=== PATIENT | female | born 1990 | race Caucasian/White ===

== ENCOUNTER 2019-09-13 14:44 | Observation (INO) ==
[2019-09-13] MEDS ORDERED: SODIUM CHLORIDE 0.9% 1000ML 2,000 ML IV ONE (14:57)
[2019-09-13] MEDS ORDERED: ONDANSETRON INJ 2 MG/ML 2 ML VIAL IV STA (14:57)
[2019-09-13 15:20] LABS: Basophils # (auto) 0.01 K/uL (0-0.2); Basophils % (auto) 0.1 %; Hematocrit (blood only) 38.8 % (37-47); Hemoglobin 13.4 g/dL (12.0-16.0); Immature Granulocytes # (auto) 0.04 K/uL (0.00-0.02); Immature Granulocytes % (auto) 0.2 %; Lymphocytes # (auto) 1.22 K/uL (1.2-3.4); Lymphocytes % (auto) 7.2 %; Mean Corpuscular Hemoglobin 30.9 pg (25-34); Mean Corpuscular Hgb Conc 34.5 g/dL (32-36); Mean Corpuscular Volume 89.6 fL (80-100); Mean Platelet Volume 10.4 fL (7.4-10.4); Monocytes # (auto) 1.26 K/uL (0.11-0.59); Monocytes % (auto) 7.4 %; Neutrophils # (auto) 14.42 K/uL (1.4-6.5); Neutrophils % (auto) 85.1 %; Platelet Count 246 K/uL (130-400); RDW Coefficient of Variation 13.1 % (11.5-14.5); RDW Standard Deviation 42.9 fL (36.4-46.3); Red Blood Count 4.33 M/uL (4.2-5.4); White Blood Count 16.95 K/uL (4.8-10.8)
[2019-09-13 15:47] LABS: Albumin Level 4.1 gm/dl (3.4-5.0); BUN Creatinine Ratio 10.9 (10-20); Calcium 9.2 mg/dl (8.5-10.1); Creatinine Clr Calc Pharmacy 90.3 ml/min; Est GFR (African American) 111.3; Potassium 3.4 mmol/L (3.5-5.1)
[2019-09-13 15:50] LABS: Globulin 4.3 gm/dl (2.5-4.0); Total Protein 8.4 gm/dl (6.4-8.2)
[2019-09-13 16:20] LABS: Appearance Urine Clear (Clear); Bilirubin Urine Negative (Negative); Blood Urine Negative (Negative); Color Urine Yellow; Glucose Urine UA Negative (Negative); Ketones Urine Negative (Negative); Leukocyte Esterase Urine Negative (Negative); Nitrite Urine Negative (Negative); Protein Urine Negative (Negative); Specific Gravity Urine 1.007 (1.000-1.030); Urobilinogen Urine Negative (Negative)
[2019-09-13] MEDS ORDERED: IOVERSOL 100ml IV PRN (17:20)
--- NOTE | 2019-09-13 17:31 | CT Scan Report ---
CT abd pelvis oral and IV con CT DOSE: 281.41 mGy.cm HISTORY: Flank pain abd rlq TECHNIQUE: Multiaxial CT images of the abdomen and pelvis were performed following the use of intrave nous and oral contrast. A dose lowering technique was utilized adhering to the principles of ALARA. COMPARISON STUDY: None. FINDINGS: Lung bases are clear. Liver spleen and pancreas are unremarkable. Kidneys enhance uniformly. No evidence for hydronephrosis. Considerable infiltrative change surrounding the cecum and appendix. The appendix is distended to 1.2 cm. No evidence for drainable abscess or collection. The appearance however is consistent with that of acute appendicitis. Bowel pattern again is nonobstructive. There are small ovarian follicular cysts bilaterally. There is trace free fluid within the pelvic cul-de-sac. IMPRESSION: 1. Acute appendicitis. 2. The appendix is dilated to 1.2 cm, and demonstrates considerable periappendiceal infiltrative rivera ge. 3. No evidence for abscess collection or obstruction. The above report was generated using voice recognition software. It may contain grammatical, syntax or spelling errors. Electronically signed by: Maximus Bueno M.D. 09/13/2019 5:30 PM
[2019-09-13] MEDS ORDERED: cefOXitin 2,000 MG/60 ML BAG IV STA (17:39)
[2019-09-13] MEDS ORDERED: WATER, STERILE FOR INJ 20 ML VIAL ONE (17:44)
--- NOTE | 2019-09-13 18:17 | Emergency Department Note ---
Entered by Bryanna Garcia acting as a scribe for Clyde Benjamin DO History of Present Illness General Chief complaint: Abdominal Pain Stated complaint: SEVERE ABDOMINAL PAIN Source: patient History of Present Illness Provider complaint: Abdominal Pain Onset (ago): day(s) 1 Location: abdomen (Lower) and right Maximum Pain Intensity: 5 Relieved By: + none Exacerbated By: + none Associated symptoms: + denies other symptoms (Abnormal vaginal bleeding or discharge, urinary symptoms), + nausea/vomiting (Positive nausea. Negative vomiting.) and + other (Diarrhea) The patient is a 29 year old female who presents to the Emergency Room with complaints of lower right sided abdominal pain that began yesterday. The patient states the pain is not relieved nor exacerbated by anything specific. The patient reports experiencing nausea and diarrhea but denies any vomiting. The patient denies any abnormal vaginal bleeding or discharge and does not report any urinary symptoms. 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 The patient also denies any previous abdominal surgeries. Home Medications Home Medications Medication Instructions Recorded Confirmed Type quetiapine [Seroquel XR] 400 mg PO PM 09/13/19 09/13/19 History Allergies Allergy/AdvReac Type Severity Reaction Status Date / Time No Known Allergies Allergy Unverified 09/13/19 16:11 Past Med/Surg History Medical History No pertinent past medical history Family History Other No pertinent family history in first degree relatives Social History Preferred Language: Citizen Of [place] Communication Ability: Effective Beliefs That Will Affect Care: None Current Living Situation: Spouse Other Information That Helps Us Care for You: No Feels Safe at Home: Yes Safety Concerns: Feels Safe At This Time Smoking Status: Never smoker Hx Alcohol Use: Yes Alcohol type: wine Hx Substance Use: No Review of Systems See HPI for pertinent positives & negatives. and A total of 10 systems reviewed and were otherwise negative Physical Exam Vital Signs Vital Signs - 24 hr 09/13/19 14:45 09/13/19 15:28 09/13/19 15:31 Temperature 36.9 C Temperature Source Oral Pulse Rate 116 H 96 H Pulse Rate from SpO2 Sensor 102 H Respiratory Rate 20 22 Respiratory Depth Normal Blood Pressure 121/83 116/88 Blood Pressure Mean 95 94 Pulse Oximetry 99 98 98 Oxygen Delivery Method Room Air Room Air Sepsis Recent Fever Within 48 Hours No Sepsis New/Unexplained Change in Mental Status No Sepsis Action Taken by Nursing No Action Required 09/13/19 16:00 09/13/19 16:30 09/13/19 17:00 Temperature Temperature Source Pulse Rate 98 H 103 H 111 H Pulse Rate from SpO2 Sensor 108 H 109 H Respiratory Rate 15 15 14 Respiratory Depth Blood Pressure 137/82 128/86 122/76 Blood Pressure Mean 88 97 82 Pulse Oximetry 100 100 97 Oxygen Delivery Method Sepsis Recent Fever Within 48 Hours Sepsis New/Unexplained Change in Mental Status Sepsis Action Taken by Nursing 09/13/19 17:29 09/13/19 17:30 09/13/19 17:31 Temperature Temperature Source Pulse Rate 119 H 114 H 106 H Pulse Rate from SpO2 Sensor 108 H Respiratory Rate 18 21 22 Respiratory Depth Blood Pressure 103/87 Blood Pressure Mean 92 Pulse Oximetry 96 Oxygen Delivery Method Sepsis Recent Fever Within 48 Hours Sepsis New/Unexplained Change in Mental Status Sepsis Action Taken by Nursing 09/13/19 17:40 09/13/19 17:50 Temperature Temperature Source Pulse Rate 103 H 109 H Pulse Rate from SpO2 Sensor 104 H Respiratory Rate 18 20 Respiratory Depth Blood Pressure Blood Pressure Mean Pulse Oximetry 100 Oxygen Delivery Method Sepsis Recent Fever Within 48 Hours Sepsis New/Unexplained Change in Mental Status Sepsis Action Taken by Nursing GENERAL: alert, well nourished, mild distress, non-toxic, sitting up in bed holding RLQ EYE EXAM: normal conjunctiva LUNGS: Clear to auscultation. Normal chest wall mechanics HEART: no murmurs, S1 normal and S2 normal ABDOMEN: abdomen soft, tender to palpation of RLQ, normo-active bowel sounds, no masses, no rebound or guarding. BACK: Back is symmetrical on inspection and there is no deformity, no midline tenderness, no CVA tenderness. SKIN: no rashes and no bruising UPPER EXTREMITIES: upper extremities are grossly normal. LOWER EXTREMITIES: No pitting edema. NEURO EXAM: Normal sensorium, cranial nerves II-XII grossly intact, normal speech, no gross weakness of arms, no gross weakness of legs. Course Course ED COURSE: Vital signs were reviewed and showed the patient is situationally hypertensive and tachycardic. The patients medical record was reviewed The above diagnostic studies were performed and reviewed. ED treatments and interventions as stated above. 1453: The patient was evaluated in room B06. A complete history and physical examination was performed. 1742: Upon reevaluation, the patient is resting comfortably. I discussed my findings with the patient and the patient understands and agrees with the treatment plan. Based on the patients age, coexisting illnesses, exam and lab findings the decision to treat as an inpatient was made. The patient remained stable while under my care. 1748: I spoke with Dr. Gu- General Surgery about the patient's case and he will accept the patient to be evaluated for further management. Administered Medications Ioversol (Optiray 320 100ml) 94 ml IV ONCE PRN PRN Reason: Interaction Checking Stop: 09/17/19 17:19 Last Admin: 09/13/19 17:20 Dose: 94 ml Documented by: [id number] Discontinued Medications Sodium Chloride (Nss 1000ml) 2,000 mls @ 999 mls/hr IV .Q2H1M ONE Stop: 09/13/19 16:57 Last Infusion: 09/13/19 17:19 Dose: 0 mls/hr Documented by: [id number] Admin: 09/13/19 15:18 Dose: 999 mls/hr Documented by: [id number] Cefoxitin Sodium (Mefoxin) 2,000 mg in 60 mls @ 100 mls/hr IV NOW STA Stop: 09/13/19 18:14 Last Admin: 09/13/19 17:51 Dose: 100 mls/hr Documented by: [id number] Ondansetron HCl (Zofran) 4 mg IV NOW STA Stop: 09/13/19 14:58 Last Admin: 09/13/19 15:18 Dose: 4 mg Documented by: [id number] Sterile Water (Sterile Water) Confirm Administered Dose 20 ml .ROUTE .STK-MED ONE Stop: 09/13/19 17:45 Last Admin: 09/13/19 17:47 Dose: 20 ml Documented by: [id number] Medical Decision Making Differential Diagnosis Differential diagnoses includes but is not limited to gastritis, peptic ulcer disease, GERD, gallbladder disease, pancreatitis, small bowel obstruction, acute coronary syndrome, pericarditis, ischemic bowel, irritable bowel disease, irritable bowel syndrome, appendicitis, diverticulitis, malignancy, hernia, urinary tract infection, torsion, /ectopic , perforation, trauma, infectious. Medical Records Attestation: I reviewed the patient's medical records. Home Medications Current Medication List: was personally reviewed by me Laboratory Data Attestation: I reviewed the patient's lab results. Result diagrams: 09/13/19 15:07 09/13/19 15:07 Lab Results 09/13/19 09/13/19 09/13/19 Range/Units 15:07 15:07 15:56 WBC 16.95 H (4.8-10.8) K/uL RBC 4.33 (4.2-5.4) M/uL Hgb 13.4 (12.0-16.0) g/dL Hct 38.8 (37-47) % MCV 89.6 (80-100) fL MCH 30.9 (25-34) pg MCHC 34.5 (32-36) g/dL RDW Std Deviation 42.9 (36.4-46.3) fL RDW Coeff of Reggie 13.1 (11.5-14.5) % Plt Count 246 (130-400) K/uL MPV 10.4 (7.4-10.4) fL Immature Gran % (Auto) 0.2 % Neut % (Auto) 85.1 % Lymph % (Auto) 7.2 % [place] % (Auto) 7.4 % Eos % (Auto) 0.0 % Baso % (Auto) 0.1 % Immature Gran # (Auto) 0.04 H (0.00-0.02) K/uL Neut # (Auto) 14.42 H (1.4-6.5) K/uL Lymph # (Auto) 1.22 (1.2-3.4) K/uL [place] # (Auto) 1.26 H (0.11-0.59) K/uL Eos # (Auto) 0.00 (0-0.5) K/uL Baso # (Auto) 0.01 (0-0.2) K/uL Sodium 136 (136-145) mmol/L Potassium 3.4 L (3.5-5.1) mmol/L Chloride 104 (98-107) mmol/L Carbon Dioxide 23 (21-32) mmol/L Anion Gap 9.0 (3-11) BUN 9 (7-18) mg/dl Creatinine 0.82 (0.6-1.2) mg/dl Est Cr Clr Drug Dosing 90.3 ml/min Est GFR ( Amer) 111.3 Est GFR (Non-Af Amer) 96.0 BUN/Creatinine Ratio 10.9 (10-20) Glucose 115 H (70-99) mg/dl Calcium 9.2 (8.5-10.1) mg/dl Total Bilirubin 1.0 (0.2-1) mg/dl AST 14 L (15-37) U/L ALT 14 (12-78) U/L Alkaline Phosphatase 79 (45-117) U/L Total Protein 8.4 H (6.4-8.2) gm/dl Albumin 4.1 (3.4-5.0) gm/dl Globulin 4.3 H (2.5-4.0) gm/dl Albumin/Globulin Ratio 1.0 (0.9-2) Lipase 101 (73-393) U/L Urine Color Urine Appearance (Clear) Urine pH (4.5-7.5) Ur Specific [place] (1.000-1.030) Urine Protein (Negative) Urine Glucose (UA) (Negative) Urine Ketones (Negative) Urine Blood (Negative) Urine Nitrite (Negative) Urine Bilirubin (Negative) Urine Urobilinogen (Negative) Ur Leukocyte Esterase (Negative) POC Ur Test NEG (NEG) 09/13/19 Range/Units 15:56 WBC (4.8-10.8) K/uL RBC (4.2-5.4) M/uL Hgb (12.0-16.0) g/dL Hct (37-47) % MCV (80-100) fL MCH (25-34) pg MCHC (32-36) g/dL RDW Std Deviation (36.4-46.3) fL RDW Coeff of Reggie (11.5-14.5) % Plt Count (130-400) K/uL MPV (7.4-10.4) fL Immature Gran % (Auto) % Neut % (Auto) % Lymph % (Auto) % [place] % (Auto) % Eos % (Auto) % Baso % (Auto) % Immature Gran # (Auto) (0.00-0.02) K/uL Neut # (Auto) (1.4-6.5) K/uL Lymph # (Auto) (1.2-3.4) K/uL [place] # (Auto) (0.11-0.59) K/uL Eos # (Auto) (0-0.5) K/uL Baso # (Auto) (0-0.2) K/uL Sodium (136-145) mmol/L Potassium (3.5-5.1) mmol/L Chloride (98-107) mmol/L Carbon Dioxide (21-32) mmol/L Anion Gap (3-11) BUN (7-18) mg/dl Creatinine (0.6-1.2) mg/dl Est Cr Clr Drug Dosing ml/min Est GFR ( Amer) Est GFR (Non-Af Amer) BUN/Creatinine Ratio (10-20) Glucose (70-99) mg/dl Calcium (8.5-10.1) mg/dl Total Bilirubin (0.2-1) mg/dl AST (15-37) U/L ALT (12-78) U/L Alkaline Phosphatase (45-117) U/L Total Protein (6.4-8.2) gm/dl Albumin (3.4-5.0) gm/dl Globulin (2.5-4.0) gm/dl Albumin/Globulin Ratio (0.9-2) Lipase (73-393) U/L Urine Color Yellow Urine Appearance Clear (Clear) Urine pH 6.0 (4.5-7.5) Ur Specific [place] 1.007 (1.000-1.030) Urine Protein Negative (Negative) Urine Glucose (UA) Negative (Negative) Urine Ketones Negative (Negative) Urine Blood Negative (Negative) Urine Nitrite Negative (Negative) Urine Bilirubin Negative (Negative) Urine Urobilinogen Negative (Negative) Ur Leukocyte Esterase Negative (Negative) POC Ur Test (NEG) Imaging Data Radiologist's Impression: Radiology results as stated below per my review and the radiologist's interpretation: CT abd pelvis oral and IV con CT DOSE: 281.41 mGy.cm HISTORY: Flank pain abd rlq TECHNIQUE: Multiaxial CT images of the abdomen and pelvis were performed following the use of intravenous and oral contrast. A dose lowering technique was utilized adhering to the principles of ALARA. COMPARISON STUDY: None. FINDINGS: Lung bases are clear. Liver spleen and pancreas are unremarkable. Kidneys enhance uniformly. No evidence for hydronephrosis. Considerable infiltrative change surrounding the cecum and appendix. The appendix is distended to 1.2 cm. No evidence for drainable abscess or collection. The appearance however is consistent with that of acute appendicitis. Bowel pattern again is nonobstructive. There are small ovarian follicular cysts bilaterally. There is trace free fluid within the pelvic cul-de-sac. IMPRESSION: 1. Acute appendicitis. 2. The appendix is dilated to 1.2 cm, and demonstrates considerable periappendiceal infiltrative change. 3. No evidence for abscess collection or obstruction. The above report was generated using voice recognition software. It may contain grammatical, syntax or spelling errors. Electronically signed by: Maximus Bueno M.D. 09/13/2019 5:30 PM Blood Pressure Blood Pressure Findings: Elevated blood pressure Blood Pressure Disposition: further management by hospitalist KATHERYN Sanchez Patient is a 29-year-old female that presents the ER for right lower quadrant abdominal pain which started earlier today. She is a nurse at [employer]. IV was established blood work was obtained and showed a leukocytosis of 17,000. No significant anemia. BMP with mild hypokalemia at 3.4. LFTs bilirubin and lipase was unremarkable. UA was negative. was neg ative. CT abdomen pelvis shows acute appendicitis with a 1.2 cm appendix. Patient was given IV fluids IV Zofran and IV cefoxitin. Patient was updated at bedside. Discussed with general surgery and patient will be taken to the OR for acute appendicitis with a leukocytosis of 16,000 receiving IV cefoxitin. She has had nothing to eat or drink since last night per her report with exception of the oral contrast. Impression & Plan Acute appendicitis, Leukocytosis, Abdominal pain Discharge Plan Visit Data Chief Complaint: Abdominal Pain Stated Complaint: SEVERE ABDOMINAL PAIN ED Provider: Clyde Benjamin Discharge Problem: Acute appendicitis, Leukocytosis, Abdominal pain Forms Stand Alone Forms: Call Back Authorization, [employer] Prescriptions Prescriptions: No Action quetiapine [Seroquel XR] 400 mg Tablet Extended Release 24 Hr 400 mg PO PM RF: 0 Discharge Problem: Acute appendicitis Qualifiers: Acute appendicitis type: unspecified acute appendicitis type Qualified Code(s): K35.80 - Unspecified acute appendicitis Leukocytosis Qualifiers: Leukocytosis type: unspecified Qualified Code(s): D72.829 - Elevated white blood cell count, unspecified Abdominal pain Qualifiers: Abdominal location: right lower quadrant Qualified Code(s): R10.31 - Right lower quadrant pain The scribe's documentation has been prepared under my direction and personally reviewed by me in its entirety. I confirm that the note above accurately reflects all work, treatment, procedures, and medical decision making performed by me.
--- NOTE | 2019-09-13 18:39 | History & Physical Report ---
Date of Service September 13, 2019 Assessment & Plan (1) Acute appendicitis with localized peritonitis: 29-year-old female with acute, uncomplicated appendicitis Plan for laparoscopic appendectomy The risks of the procedure were discussed to include but not limited to bleeding, infection, normal appendix, open surgery, damage to surrounding structures, need for future or more extensive surgery, abscess, and the risk of anesthesia Antibiotics given preoperatively Admit for observation postoperatively, likely discharge in the morning The diagnosis, treatment options, details of the surgery and recovery, and plan of care were discussed with the patient, all questions were answered, the patient expressed understanding and agrees the plan of care as stated Present on Admission?: Yes History of Present Illness Primary Care Provider: Dixie Mtoa DO 29-year-old female presented to the emergency department with right lower quadrant pain. Pain began last night at around 10:00. It continued to get worse. She came into the emergency department today after having nausea and loose stools throughout the day. She also noticed that it hurt to bend over or when riding in the car. No similar episodes in the past. No personal or family history of UC or Crohn's disease. Otherwise healthy, denies prior surgery. A llergies Allergy/AdvReac Type Severity Reaction Status Date / Time No Known Allergies Allergy Unverified 09/13/19 16:11 Home Medications Home Medications Medication Instructions Recorded Confirmed Type quetiapine [Seroquel XR] 400 mg PO PM 09/13/19 09/13/19 History Past Med/Surg History Medical History No pertinent past medical history Family History Other No pertinent family history in first degree relatives Social History Preferred Language: [place] Communication Ability: Effective Beliefs That Will Affect Care: None Current Living Situation: Spouse Other Information That Helps Us Care for You: No Feels Safe at Home: Yes Safety Concerns: Feels Safe At This Time Smoking Status: Never smoker Hx Alcohol Use: Yes Alcohol type: wine Hx Substance Use: No Review of Systems Review of Systems: All systems reviewed & are unremarkable except as noted in HPI & below Physical Exam Constitutional: WD/WN, vitals as above Eyes: PERRL, conjunctivae normal, anicteric sclerae ENMT: external ear and nose normal, oropharynx normal Neck: trachea midline, no thyromegaly Respiratory: normal respiratory effort, lungs clear to auscultation Cardiovascular: RRR, no murmur, no edema Gastrointestinal (Abdomen): Percussion/Palpation: + abdomen tender (Tenderness to palpation in the right lower quadrant with localized guarding) and abdomen soft; no guarding, abdomen not rigid and no hepatosplenomegaly Musculoskeletal: no cyanosis or clubbing, extremities motor strength 5/5 Skin: no rashes, warm and dry Neurologic: PERRL, EOMI, accommodation nl, no face palsy, no dysarthria Psychiatric: A+Ox3, euthymic affect Lymphatic: no cervical or axillary lymphadenopathy Results & Data Vital Signs (Past 12 Hours) Vital Signs Temp Pulse Resp BP Pulse Ox 09/13/19 17:50 109 H 20 09/13/19 17:40 103 H 18 100 09/13/19 17:31 106 H 22 96 09/13/19 17:30 114 H 21 103/87 09/13/19 17:29 119 H 18 09/13/19 17:00 111 H 14 122/76 97 09/13/19 16:30 103 H 15 128/86 100 09/13/19 16:00 98 H 15 137/82 100 09/13/19 15:31 96 H 22 116/88 98 09/13/19 15:28 98 09/13/19 14:45 36.9 C 116 H 20 121/83 99 Laboratory Results Laboratory Results - last 24 hr 09/13/19 09/13/19 09/13/19 15:07 15:07 15:56 WBC 16.95 H RBC 4.33 Hgb 13.4 Hct 38.8 MCV 89.6 MCH 30.9 MCHC 34.5 RDW Std Deviation 42.9 RDW Coeff of Reggie 13.1 Plt Count 246 MPV 10.4 Immature Gran % (Auto) 0.2 Neut % (Auto) 85.1 Lymph % (Auto) 7.2 [place] % (Auto) 7.4 Eos % (Auto) 0.0 Baso % (Auto) 0.1 Immature Gran # (Auto) 0.04 H Neut # (Auto) 14.42 H Lymph # (Auto) 1.22 [place] # (Auto) 1.26 H Eos # (Auto) 0.00 Baso # (Auto) 0.01 Sodium 136 Potassium 3.4 L Chloride 104 Carbon Dioxide 23 Anion Gap 9.0 BUN 9 Creatinine 0.82 Est Cr Clr Drug Dosing 90.3 Est GFR ( Amer) 111.3 Est GFR (Non-Af Amer) 96.0 BUN/Creatinine Ratio 10.9 Glucose 115 H Calcium 9.2 Total Bilirubin 1.0 AST 14 L ALT 14 Alkaline Phosphatase 79 Total Protein 8.4 H Albumin 4.1 Globulin 4.3 H Albumin/Globulin Ratio 1.0 Lipase 101 Urine Color Urine Appearance Urine pH Ur Specific [place] Urine Protein Urine Glucose (UA) Urine Ketones Urine Blood Urine Nitrite Urine Bilirubin Urine Urobilinogen Ur Leukocyte Esterase POC Ur Test NEG 09/13/19 15:56 WBC RBC Hgb Hct MCV MCH MCHC RDW Std Deviation RDW Coeff of Reggie Plt Count MPV Immature Gran % (Auto) Neut % (Auto) Lymph % (Auto) [place] % (Auto) Eos % (Auto) Baso % (Auto) Immature Gran # (Auto) Neut # (Auto) Lymph # (Auto) [place] # (Auto) Eos # (Auto) Baso # (Auto) Sodium Potassium Chloride Carbon Dioxide Anion Gap BUN Creatinine Est Cr Clr Drug Dosing Est GFR ( Amer) Est GFR (Non-Af Amer) BUN/Creatinine Ratio Glucose Calcium Total Bilirubin AST ALT Alkaline Phosphatase Total Protein Albumin Globulin Albumin/Globulin Ratio Lipase Urine Color Yellow Urine Appearance Clear Urine pH 6.0 Ur Specific [place] 1.007 Urine Protein Negative Urine Glucose (UA) Negative Urine Ketones Negative Urine Blood Negative Urine Nitrite Negative Urine Bilirubin Negative Urine Urobilinogen Negative Ur Leukocyte Esterase Negative POC Ur Test Diagnostic Findings CT abd pelvis oral and IV con CT DOSE: 281.41 mGy.cm HISTORY: Flank pain abd rlq TECHNIQUE: Multiaxial CT images of the abdomen and pelvis were performed following the use of intravenous and oral contrast. A dose lowering technique was utilized adhering to the principles of ALARA. COMPARISON STUDY: None. FINDINGS: Lung bases are clear. Liver spleen and pancreas are unremarkable. Kidneys enhance uniformly. No evidence for hydronephrosis. Considerable infiltrative change surrounding the cecum and appendix. The appendix is distended to 1.2 cm. No evidence for drainable abscess or collection. The appearance however is consistent with that of acute appendicitis. Bowel pattern again is nonobstructive. There are small ovarian follicular cysts bilaterally. There is trace free fluid within the pelvic cul-de-sac. IMPRESSION: 1. Acute appendicitis. 2. The appendix is dilated to 1.2 cm, and demonstrates considerable periappendiceal infiltrative change. 3. No evidence for abscess collection or obstruction PG Care Time/CCT Total # of Minutes Spent Total Time Spent with Patient: Total time spent is greater than 50% in coordination of care (as documented) at patient's floor/unit and/or counseling patient:
[2019-09-13] MEDS ORDERED: ONDANSETRON INJ 2 MG/ML 2 ML VIAL ONE (18:43)
[2019-09-13] MEDS ORDERED: DEXAMETHASONE SOD INJ 4 MG/ML VIAL ONE (18:43)
[2019-09-13] MEDS ORDERED: SUCCINYLCHOLINE CHLORIDE 20 MG/ML 10 ML VIAL ONE (18:43)
[2019-09-13] MEDS ORDERED: PROPOFOL IV EMULSION 10 MG/ML 20 ML VIAL IV ONE (18:43)
[2019-09-13] MEDS ORDERED: fentaNYL citrate 100 MCG/2 ML VIAL ONE ×2 (18:43)
[2019-09-13] MEDS ORDERED: LIDOCAINE HCL 2% 2 ML VIAL/AMP(20MG/ML) INFIL ONE (18:43)
[2019-09-13] MEDS ORDERED: KETOROLAC 30 MG/ML VIAL ONE (18:43)
[2019-09-13] MEDS ORDERED: BUPIVACAINE 0.5 % 5 MG/1 ML MPF 30ML VIAL ONE (18:56)
--- NOTE | 2019-09-13 19:00 | Anesthesiology Consultation ---
Date of Service September 13, 2019 Assessment & Plan (1) Encounter for pre-operative examination: Chart Review Chart Review: Acceptable Risk for Surgery and Patient NOT seen in Pre Admission Testing Consults Requested none ASA [id number] Proposed Anesthesia Anesthesia Type: General Risk / Benefits Reviewed With: PT / POA / Parent / Guardian, Accepts Plan and Informed Consent Obtained History Surgery Operation Date: 09/13/19 19:00 Proposed Procedures p Laparoscopic Appendectomy - Lc Gu, , FACS Height/Weight Height: 5 ft 5 in Weight: 61.9 kg Allergies Allergy/AdvReac Type Severity Reaction Status Date / Time No Known Allergies Allergy Unverified 09/13/19 16:11 Medications Home Medications Medication Instructions Recorded Confirmed Last Taken quetiapine [Seroquel XR] 400 mg PO PM 09/13/19 09/13/19 Unknown Active Medications Generic Name Dose Route Start Last Admin Trade Name Freq PRN Reason Stop Dose Admin Ioversol 94 ml 09/13/19 17:20 09/13/19 17:20 Optiray 320 100ml IV 09/17/19 17:19 94 ml ONCE PRN Administration Interaction Checking NPO Date Last Intake of Fluids: 09/12/19 Time Last Intake of Fluids: 22:00 Last Intake of Fluids Comment: sips Date Last Intake of Solids: 09/12/19 Time Last Intake of Solids: 21:00 Past Medical History Medical History No pertinent past medical history Exercise / Class Metabolic Activity II 4-5 Yardwork/Stairs/Walk up hill Past Family History Family History Other No pertinent family history in first degree relatives Past Anesthesia History No Hx of Anesthesia Complications and No Family Hx of Anesthesia Complications History of PONV No Hx of PONV and No Hx of Motion Sickness Social History Smoking Status: Never smoker Hx Alcohol Use: Yes Alcohol type: wine alcohol intake frequency: other Alcohol Intake Frequency Comment: EVERY OTHER WEEKEND Hx Substance Use: No Physical Exam Vital Signs Last Vital Signs Temp 36.9 C 09/13/19 14:45 Pulse 119 H 09/13/19 18:31 Resp 19 09/13/19 18:31 BP 113/99 09/13/19 18:30 Pulse Ox 98 09/13/19 18:20 ENMT Mouth: no dentition abnormality Thyromental Distance: > or= 3.5 Finger Breadths Mallampati Class: II Neck normal visual inspection Respiratory normal respiratory effort Auscultation: lungs clear to auscultation bilaterally Cardiovascular Rate/Rhythm: regular rate and regular rhythm Psychiatric Orientation: alert Testing Laboratory Results 09/13/19 15:07 09/13/19 15:07 Urine Color Yellow 09/13/19 15:56 Urine Appearance Clear (Clear) 09/13/19 15:56 Urine pH 6.0 (4.5-7.5) 09/13/19 15:56 Ur Specific [employer] 1.007 (1.000-1.030) 09/13/19 15:56 Urine Protein Negative (Negative) 09/13/19 15:56 Urine Glucose (UA) Negative (Negative) 09/13/19 15:56 Urine Ketones Negative (Negative) 09/13/19 15:56 Urine Nitrite Negative (Negative) 09/13/19 15:56 Ur Leukocyte Esterase Negative (Negative) 09/13/19 15:56 09/13/19 15:56 POC Ur Test NEG
[2019-09-13] MEDS ORDERED: ATROPINE SULFATE 0.1 MG/ML 10ML SYR IV PRN (19:01)
[2019-09-13] MEDS ORDERED: HYDROmorphone INJ 1 MG/ML SYRINGE IV PRN (19:01)
[2019-09-13] MEDS ORDERED: ePHEDrine sulfate 50 MG/ML AMP IV PRN (19:01)
[2019-09-13] MEDS ORDERED: ONDANSETRON INJ 2 MG/ML 2 ML VIAL IV PRN ×2 (19:01→21:12)
[2019-09-13] MEDS ORDERED: fentaNYL citrate 100 MCG/2 ML VIAL IV PRN (19:01)
[2019-09-13] MEDS ORDERED: PROMETHAZINE HCL 12.5 MG in SODIUM CHLORIDE 0.9% 50 ML IV PRN (19:01)
[2019-09-13] MEDS ORDERED: NEOSTIGMINE METHYLSULFATE 5 MG/5 ML SYR ONE (19:49)
[2019-09-13] MEDS ORDERED: GLYCOPYRROLATE 0.2 MG/ML VIAL ONE (19:49)
--- NOTE | 2019-09-13 20:06 | Operative Report ---
PG Post Operative Report Pre & Post Diagnosis Operation Date: 09/13/19 19:00 Preoperative diagnosis: Acute appendicitis Postoperative diagnosis: Acute appendicitis I identified the patient and participated in the time-out.: Yes Procedure Operation Date: 09/13/19 19:00 Operation performed: Laparoscopic appendectomy Surgeon Lc Gu DO, FACS Barrel Endshake Adjuster None Estimated Blood Loss 4 Findings Consistent with Post-Op Diagnosis Acute, nonperforated appendicitis. Specimens Appendix Anesthesia Type General Complications none Disposition Accompanied Patient To Recovery: No Disposition: Recovery Room Indications 29-year-old female presented to the emergency department with signs and symptoms of acute appendicitis. CT scan revealed dilated and inflamed appendix with no evidence of perforation. Plan for laparoscopic appendectomy. The risks of the procedure were discussed, all questions were answered, and the patient agreed to proceed with surgery as planned. Description of Procedure The patient was properly identified, consented, and taken to the operating room where she was placed in the supine position. General endotracheal anesthesia was induced. SCDs and a safety belt were placed. Preoperative antibiotics were administered. The patient's abdomen was prepped and draped in the standard sterile fashion. Surgical timeout was performed and all parties were in a greement that this was the correct patient and procedure to be performed and we continued as planned. A curvilinear infraumbilical incision was made with electrocautery and deepened down to the fascia with blunt dissection. The base of the umbilicus was grasped with a Raul and elevated towards the ceiling. An incision was made in the midline fascia with a knife and entry into the peritoneum was confirmed. Stay suture of 0 Vicryl was placed and a Moya trocar was inserted. The abdomen was insufflated with carbon dioxide which the patient tolerated without incident. The laparoscope was inserted and no damage from initial trocar placement was noted, no gross abnormalities were noted within the 4 quadrants the abdomen. 5 mm ports were then placed in the left lower quadrant with care not to damage the epigastric vessels, and in the suprapubic midline with care not to damage the bladder. The patient was placed in Trendelenburg position and rotated towards the left. The small bowel was swept away from the right lower quadrant. The cecum was grasped with an atraumatic grasper exposing the appendix. The appendix was significantly inflamed with some fibrinous exudate, but there was no evidence of perforation. There was no fluid in the pelvis. The appendix was not retrocecal but it was adherent to the cecum. This was gently teased away using blunt dissection. A window was created between the base of the appendix and the mesoappendix. The harmonic scalpel was used to divide the mesoappendix. A busby loaded endoscopic stapler was then used to divide the appendix at its base. Hemostasis was good. The appendix was placed in an Endo Catch bag and removed through the umbilical port site. The right lower quadrant and pelvis was irrigated and hemostasis was found to be good. 5 mm trochars were removed under direct visualization and the abdomen was allowed to collapse. The umbilical port site fascia was closed with 0 Vicryl suture. The wound was irrigated, and the skin of all ports was closed with 4-0 Monocryl subcuticular sutures. Dermabond was placed over the wounds. The patient was extubated in the operating room and taken to the PACU where she recovered without apparent incident. All sponge, instrument and needle counts were correct at the conclusion of the procedure. The patient tolerated the procedure well. I attest to the content of the Intraoperative Record and any orders documented therein. Any exceptions are noted below.
--- NOTE | 2019-09-13 20:39 | Anesthesiology Progress Note ---
Date of Service September 13, 2019 Anesthesia Post Procedure Vital Signs Vital Signs: Temp Pulse Pulse Resp BP BP Pulse Ox 09/13/19 20:35 89 20 114/76 100 09/13/19 20:25 88 21 117/77 100 09/13/19 20:19 36.2 C L 109 H 20 114/75 100 09/13/19 18:31 119 H 19 09/13/19 18:30 120 H 20 113/99 09/13/19 18:20 117 H 21 98 09/13/19 18:11 122 H 18 09/13/19 18:01 119 H 20 92 09/13/19 18:00 119 H 25 H 133/85 99 09/13/19 17:50 109 H 20 09/13/19 17:40 103 H 18 100 09/13/19 17:31 106 H 22 96 09/13/19 17:30 114 H 21 103/87 09/13/19 17:29 119 H 18 09/13/19 17:00 111 H 14 122/76 97 09/13/19 16:30 103 H 15 128/86 100 09/13/19 16:00 98 H 15 137/82 100 09/13/19 15:31 96 H 22 116/88 98 09/13/19 15:28 98 09/13/19 14:45 36.9 C 116 H 20 121/83 99 Pain Intensity Right Lower Abdomen: Pain Intensity: 5 Transfer of Care Handoff Completed per policy Notes Mental Status: alert / awake / arousable and participated in evaluation Patient Amnestic to Procedure: Yes Nausea / Vomiting: adequately controlled Pain: adequately controlled Airway Patency, RR, SpO2: stable & adequate BP & HR: stable & adequate Hydration State: stable & adequate Anesthetic Complications: no major complications apparent and Pt Satisfied with anesthetic care
[2019-09-13] MEDS ORDERED: OXYCODONE/ACETAMINOPHEN 5mg/325mg TAB PO PRN ×2 (21:12)
[2019-09-13] MEDS ORDERED: DiphenhydrAMINE HCL 50 MG/ML VIAL IV PRN (21:12)
[2019-09-13] MEDS ORDERED: MoRPHine SULFATE 4 MG/ML 1 ML CARP\\VIAL IV PRN (21:56)
[2019-09-13] MEDS ORDERED: MoRPHine SULFATE 2 MG/ML CARP IV PRN (21:56)
[2019-09-13] MEDS: LACTATED RINGER'S 1,000 ML IV SCH (22:00)
[2019-09-13] MEDS: KETOROLAC TROMETHAMINE 15 MG/ML VIAL IV SCH (23:24)
[2019-09-13] MEDS: cefOXitin 2,000 MG in DEXTROSE 5% 50 ML IV SCH (23:29)
[2019-09-14] MEDS: KETOROLAC TROMETHAMINE 15 MG/ML VIAL IV SCH (05:27)
[2019-09-14] MEDS: cefOXitin 2,000 MG in DEXTROSE 5% 50 ML IV SCH (05:28)
[2019-09-14] MEDS: LACTATED RINGER'S 1,000 ML IV SCH (07:18)
--- NOTE | 2019-09-14 07:45 | Surgery Progress Note ---
Date of Service September 14, 2019 Assessment & Plan (1) Acute appendicitis: POD#1 Laparoscopic appendectomy Patient feels much better than yesterday and pain is well controlled Vital signs stable Advance to regular diet this AM Anticipate discharge to home today Will leave work note and instructions for patient to follow up in clinic within [address] Gu Subjective Patient states she feels much better than yesterday. She has tolerated a clear liquid diet without nausea/vomiting. Pain is well controlled with prn meds. Has some shoulder discomfort. Physical Exam Physical Exam: awake/alert Constitutional: well developed and well nourished; no acute distress Gastrointestinal (Abdomen): Inspection/Auscultation: + abdominal surgical incision (c/d/i with dermabond overtop); abdomen not distended Perc ussion/Palpation: abdomen soft; abdomen nontender Results & Data Vital Signs (Past 12 Hours) Vital Signs Temp Pulse Pulse Resp BP Pulse Ox 09/14/19 07:17 37.2 C 83 16 117/76 97 09/14/19 03:21 37.2 C 86 16 96/56 L 96 09/14/19 00:16 37.2 C 82 18 116/70 97 09/13/19 23:13 37.4 C 85 18 121/82 98 09/13/19 22:14 36.6 C 83 16 122/81 96 09/13/19 21:41 36.7 C 86 18 109/81 96 09/13/19 21:10 37.2 C 86 18 115/76 99 09/13/19 20:55 37.0 C 88 18 110/74 97 09/13/19 20:45 83 15 116/76 99 09/13/19 20:35 89 20 114/76 100 09/13/19 20:25 88 21 117/77 100 09/13/19 20:19 36.2 C L 109 H 20 114/75 100 PG Care Time/CCT Total # of Minutes Spent Total Time Spent with Patient: Total time spent is greater than 50% in coordination of care (as documented) at patient's floor/unit and/or counseling patient: (1) Acute appendicitis Acute appendicitis type: unspecified acute appendicitis type Qualified Code(s): K35.80 - Unspecified acute appendicitis
--- NOTE | 2019-09-14 10:29 | Discharge Summary ---
Date of Service September 14, 2019 Admission HPI Per Admitting Provider 29-year-old female presented to the emergency department with right lower quadrant pain. Pain began last night at around 10:00. It continued to get worse. She came into the emergency department today after having nausea and loose stools throughout the day. She also noticed that it hurt to bend over or when riding in the car. No similar episodes in the past. No personal or family history of UC or Crohn's disease. Otherwise healthy, denies prior surgery. Principal Diagnosis acute appendicitis Discharge Exam Constitutional well developed and well nourished; no acute distress Gastrointestinal (Abdomen) Inspection/Auscultation: + abdominal surgical incision (c/d/i with dermabond overtop); abdomen not distended Percussion/Palpation: abdomen soft; abdomen nontender Discharge Data Allergies Allergy/AdvReac Type Severity Reaction Status Date / Time No Known Allergies Allergy Unverified 09/13/19 16:11 Consultations 09/13/19 17:52 ED Decision to Admit Stat Procedures Performed Operation Date: 09/13/19 19:00 Actual Procedures p Laparoscopic Appendectomy(Not Applicable) - Lc Gu DO, FACS Ordered Studies 09/13/19 14:57 CT abd pelvis oral and IV con Stat Hospital Course (1) Acute appendicitis: This is a 29y F who presented to the [facility] ED on 09/13/19 with complaints of abdominal pain. Workup in the ED with a CT a/p revealed findings concerning for acute appendicitis and a WBC of 16.95. The patient was NPO with IVF and surgery was consulted. Patient agreeable to surgical intervention to remove her appendix. On 11 the patient went to the OR and underwent a laparoscopic appendectomy with Dr. Gu. The patient tolerated the procedure well, see operative report for full details. The patient recovered in the PACU and was transferred to the nursing floor in stable condition. Her diet was advanced as tolerated, pain controlled with prn medication, and she was able to void spontaneously without issues. On POD#1 she was deemed stable for discharge to home. She was tolerating a regular diet, incisions clean/dry/intact, and her pain was well controlled. The patient was instructed to follow up in clinic within 2 weeks. Total Time Total Time Spent Total Time Spent (In Minutes): 15 Discharge Plan Discharge Items Patient Disposition: Home - Self-Care Reason For Visit: APPENDICITIS, STATUS POST APPENDECTOMY Discharge Diagnosis: appendicitis, status post appendectomy Condition on Discharge: Good Activity: As commented below Activity Comment: Increase activity as tolerated, no heavy lifting or strenuous activity for 3 weeks Lifting: No more than 25 pounds Lifting Comment: For 3 weeks Bathing Comment: You may shower starting tomorrow do not soak or scrub wound for 2 weeks Sexual Activity: When tolerated Exercise/Sports: Gradually increase as tolerated Non-emergency contact: Surgeon Call non-emergency contact if: your temperature is above 101.5, your wound has increased redness, your wound has increased drainage and your wound pain has increased Follow-up/Referrals: Lc Gu DO, FACS [Physician] - (Please call the clinic to schedule a follow-up appointment with Dr. Gu in 2 weeks) Dixie Mota DO [Primary Care Provider] - Diet: Regular Addtl Attending Provider Instructions: You may take ibuprofen along with Percocet as needed for pain. Follow perinatology physician's instructions. You may take Tylenol in place of Percocet, follow perinatology physician's instructions. Do not take Percocet and Tylenol together. Pending Studies at Discharge: Yes Studies:: Pathology Stand-Alone Forms: Call Back Authorization, [facility], [facility], Work/School Release (Inpt) Medications and DC Order Prescriptions: New oxycodone-acetaminophen [Percocet] 5-325 mg tablet 1 - 2 tab PO Q6H PRN (Reason: pain) Qty: 10 RF: 0 oxycodone-acetaminophen [Percocet] 5-325 mg Tablet 1 - 2 tab PO Q4H PRN (Reason: pain) Qty: 14 RF: 0 Continued quetiapine [Seroquel XR] 400 mg Tablet Extended Release 24 Hr 400 mg PO PM RF: 0 Discharge Orders: Discharge Order (Routine); Ordered 09/14/19 Ordered By: Teri Michaels/Other Patient Handouts: Surgery Prevent DVT After, Appendectomy Admission Data Admit Date/Time: 09/13/19 20:10 Attending Provider: Lc Gu Admit Provider: Lc Gu Primary Care Provider: Dixie Mota Other Providers: Lc Gu Other Interventions: Discharge Summary Assessment (RN) Last Done: 09/14/19 10:25
== END 2019-09-14 10:50 | disposition home or self-care (01) ==
LOC: ED 14:44 → 3W 18:38 → OR 18:38

== ENCOUNTER 2020-07-27 05:10 | Inpatient (IN) ==
[2020-07-27] MEDS ORDERED: OXYTOCIN 30 UNITS/500 ML BAG IV PRN (08:36)
[2020-07-27 09:00] LABS: Hemoglobin 12.4 g/dL (12.0-16.0); Mean Corpuscular Hemoglobin 30.5 pg (25-34); Mean Corpuscular Volume 91.1 fL (80-100); Mean Platelet Volume 11.5 fL (7.4-10.4); Platelet Count 170 K/uL (130-400); RDW Coefficient of Variation 14.8 % (11.5-14.5); RDW Standard Deviation 49.5 fL (36.4-46.3); Red Blood Count 4.06 M/uL (4.2-5.4); White Blood Count 11.09 K/uL (4.8-10.8)
[2020-07-27 09:10] LABS: Mean Corpuscular Hgb Conc 33.5 g/dL (32-36)
[2020-07-27] MEDS ORDERED: DINOPROSTONE 10 MG INSERT PV ONE (09:15)
--- NOTE | 2020-07-27 09:27 | Obstetrical Progress Note ---
Date of Service July 27, 2020 Assessment & Plan Admission and Anticipated Discharge Date Admission Date: July 27, 2020 Subjective Admit Note 30 F P0000 at 40.4 weeks admitted for induction of labor for post dates . Her GBS is negative. Covid is negative. FHT Cat 1 with no contractions. Cervix is finger-tip/50/-3/posterior/mod/intact/vertex. Cervidil 10 mg placed vaginally. Results & Data ([facility]) Vital Signs (Past 12 Hours) Vital Signs Temp Pulse Resp BP 07/27/20 07:48 37.2 C 87 20 118/69
[2020-07-27] MEDS ORDERED: QUEtiapine FUMARATE 200 MG TAB PO SCH (21:00)
[2020-07-27] MEDS: QUEtiapine FUMARATE 200 MG TABCR PO SCH (21:26)
--- NOTE | 2020-07-27 21:52 | Obstetrical Progress Note ---
Date of Service July 27, 2020 Assessment & Plan Admission and Anticipated Discharge Date Admission Date: July 27, 2020 Physical Exam Genitourinary: Manual OB Exam: + cervical dilation 1 cm, + cervical effacement 50% and + station -2 OB Exam Monitor Tracing: + external FHT monitor used and + external uterine monitor used Cervidil removed from vagina will start PO Cytotec 50 mcg if contractions space out Results & Data ([facility]) Vital Signs (Past 12 Hours) Vital Signs Temp Pulse Resp BP 07/27/20 20:35 92 H 121/78 07/27/20 19:02 36.7 C 18 07/27/20 18:59 36.7 C 88 18 120/76 07/27/20 15:43 37.2 C 95 H 18 121/67 07/27/20 11:34 37.2 C 96 H 20 118/71
[2020-07-28] MEDS: miSOPROStoL 50 MCG TAB PO SCH ×4 (00:44→13:37)
[2020-07-28] MEDS ORDERED: OXYTOCIN 30 UNITS/500 ML BAG IV PRN (13:39)
[2020-07-28] MEDS ORDERED: Nursing to Pharmacy Communication SCH (13:45)
[2020-07-28] MEDS: LACTATED RINGER'S 1,000 ML IV PRN ×2 (13:54→18:21)
[2020-07-28] MEDS ORDERED: fentaNYL citrate 100 MCG/2 ML VIAL ONE (17:49)
[2020-07-28] MEDS ORDERED: ePHEDrine sulfate 50 MG/ML AMP ONE (17:49)
[2020-07-28] MEDS ORDERED: BUPIVACAINE 0.25% 30 ML VIAL ONE (17:49)
[2020-07-28] MEDS ORDERED: fentaNYL 2MCG/ML ROPIVACAINE 1.25MG/ML 100 ML BAG EPI ONE (17:50)
--- NOTE | 2020-07-28 17:58 | Anesthesiology Consultation ---
Date of Service July 28, 2020 Assessment & Plan Chart Review Chart Review: Acceptable Risk for Surgery, Patient NOT seen in Pre Admission Testing and Acceptable Risk for Labor Epidural Consults Requested none Proposed Anesthesia Anesthesia Type: Labor Epidural and CSE History Height/Weight Height: 5 ft 5 in Weight: 77.111 kg Allergies Allergy/AdvReac Type Severity Reaction Status Date / Time No Known Allergies Allergy Unverified 07/27/20 07:56 Medications Home Medications Medication Instructions Recorded Confirmed Last Taken quetiapine [Seroquel XR] 400 mg PO PM 09/13/19 07/27/20 07/26/20 21:30 ferrous sulfate 325 mg PO DAILY 07/27/20 07/27/20 07/26/20 09:00 prenat.vits,keshia,yyf-kwam-ujpcj 1 tab PO DAILY 07/27/20 07/27/20 07/26/20 09:00 [ Vitamin] Active Medications Generic Name Dose Route Start Last Admin Trade Name Freq PRN Reason Stop Dose Admin Lactated Ringer's 1,000 mls @ 125 mls/hr 07/27/20 08:36 07/28/20 17:28 Lr IV 07/29/20 08:35 125 mls/hr .Q8H PRN Infusion L&D Protocol Protocol Oxytocin 30 units in 500 mls @ 8 mls/hr 07/28/20 13:39 07/28/20 17:28 Pitocin IV 07/30/20 13:38 0.48 units/hr .Q24H PRN 8 mls/hr Labor Induction/Augmentation Titration Protocol 0.48 UNITS/HR Quetiapine Fumarate 400 mg 07/27/20 21:00 07/27/20 21:26 Quetiapine Fumarate 200 Mg Tabcr PO 08/26/20 20:59 400 mg HS REKHA Administration Past Medical History Medical History Bipolar 1 disorder No pertinent past medical history Exercise / Class Metabolic Activity II 4-5 Yardwork/Stairs/Walk up hill Past Family History Family History Other No pertinent family history in first degree relatives Past Anesthesia History No Hx of Anesthesia Complications and No Family Hx of Anesthesia Complications History of PONV No Hx of PONV and No Hx of Motion Sickness Social History Smoking Status: Never smoker Hx Alcohol Use: Yes Alcohol type: wine alcohol intake frequency: other Hx Substance Use: No Physical Exam Vital Signs Last Vital Signs Temp 37.1 C 07/28/20 14:58 Pulse 98 H 07/28/20 16:18 Resp 18 07/28/20 14:58 BP 125/81 07/28/20 16:18 Testing Laboratory Results 07/27/20 08:46
[2020-07-28] MEDS ORDERED: fentaNYL 2MCG/ML ROPIVACAINE 1.25MG/ML 100 ML BAG EPI PRN (18:38)
[2020-07-28] MEDS ORDERED: NALOXONE HCL 0.4 MG/1 ML VIAL/CARP IV PRN (18:38)
[2020-07-28] MEDS ORDERED: ONDANSETRON INJ 2 MG/ML 2 ML VIAL IV PRN (18:38)
[2020-07-28] MEDS ORDERED: diphenhydrAMINE 50 MG/ML VIAL IV PRN (18:38)
[2020-07-28] MEDS ORDERED: PROMETHAZINE HCL 25 MG in SODIUM CHLORIDE 0.9% 50 ML IV PRN (18:38)
[2020-07-28] MEDS ORDERED: NALOXONE HCL 1 MG in SODIUM CHLORIDE 0.9% 1000ML 1,000 ML IV PRN (18:38)
[2020-07-28] MEDS ORDERED: ePHEDrine sulfate 50 MG/ML AMP IV PRN (18:38)
[2020-07-28] MEDS: QUEtiapine FUMARATE 200 MG TABCR PO SCH (22:16)
[2020-07-29] MEDS ORDERED: METHYLERGONOVINE MALEATE 0.2 MG/ML AMP ONE (05:25)
[2020-07-29] MEDS ORDERED: METHYLERGONOVINE MALEATE 0.2 MG/ML AMP IM ONE (05:52)
[2020-07-29] MEDS ORDERED: HYDROCORTISONE ACETATE 25 MG SUPP PR PRN (05:52)
[2020-07-29] MEDS ORDERED: DIPHTHERIA/TETANUS/PERTUSSIS 0.5 ML SYR/VIAL IM ONE (05:52)
[2020-07-29] MEDS ORDERED: SUPERCREAM 0.870% 15 GM JAR EXT PRN (05:52)
[2020-07-29] MEDS ORDERED: ACETAMINOPHEN W/CODEINE #3 1 TAB PO PRN (05:52)
[2020-07-29] MEDS ORDERED: OXYTOCIN 30 UNITS/500 ML BAG IV PRN (05:52)
[2020-07-29] MEDS ORDERED: BENZOCAINE 20% AER SPR 82.5 GM CAN EXT PRN (05:52)
[2020-07-29] MEDS ORDERED: miSOPROStoL 200 MCG TAB PR ONE (05:52)
[2020-07-29] MEDS ORDERED: ACETAMINOPHEN 325 MG TAB PO PRN (05:52)
[2020-07-29] MEDS ORDERED: bisacodyL 10 MG SUPP PR PRN (05:52)
--- NOTE | 2020-07-29 06:45 | Operative Report (OR) ---
DATE OF OPERATION: 07/29/2020 DELIVERY NOTE She is a 1, para 1, who was brought in for induction for postdates. Blood type is O positive, group B strep negative. Received several doses of p.o. Cytotec. Eventually had her membranes ruptured and went to IV Pitocin. After membranes were ruptured, she requested and received epidural for pain control. She got good effect from the epidural. She went to full dilatation. She had a hard time pushing the down. She made steady but slow progress and eventually she delivered the occiput anterior position live female infant. The infant was suctioned through the mouth and the nose. Shoulders were delivered without difficulty. Cord was allowed to clamp for a minute, then clamped and cut. Meconium was noted at this time. Cord blood was taken. With IV Pitocin running, the placenta was removed intact. Inspection of the perineum revealed a second-degree laceration. The vaginal mucosa was approximated out and to beyond the hymenal ring with a running 2-0 Vicryl. Then 2 interrupted sutures were used to approximate the rectovaginal septum in a horizontal fashion. We used about three interrupted Vicryls to bolster the rectal sphincter capsule. Then I did a deep suture to approximate the bulbocavernosus muscle, separate deep suture to approximate the perineal body, then a running subcuticular suture to approximate the perineal skin edges. Following this, we had an episode of some heavy bleeding with clotting. Gave her IM Methergine and rectal Cytotec 800 mcg. The uterus then contracted nicely. Hemostasis was good. Estimated blood loss 500 mL. I attest to the content of the Intraoperative Record and any orders documented therein. Any exception s are noted below.
--- NOTE | 2020-07-29 07:24 | Anesthesia Procedure Note ---
Date of Service July 29, 2020 Anesthesia Post Epidural Note Vital Signs Vital Signs: Temp Pulse Resp BP Pulse Ox 37.3 C 107 H 18 115/76 97 07/29/20 04:24 07/29/20 07:10 07/29/20 03:10 07/29/20 07:10 07/29/20 05:14 Notes Mental Status: alert / awake / arousable Nausea / Vomiting: adequately controlled Pain: adequately controlled Airway Patency, RR, SpO2: stable & adequate BP & HR: stable & adequate Hydration State: stable & adequate Neuraxial Anesthesia: was administered and sensory block is resolving Anesthetic Complications: no major complications apparent and Pt Satisfied with anesthetic care Epidural: Removed without complications and With tip intact
[2020-07-29] MEDS: FERROUS SULFATE 325 MG TAB PO SCH (07:49)
[2020-07-29] MEDS: DOCUSATE SODIUM 100 MG CAP PO SCH ×2 (07:49→21:27)
[2020-07-29] MEDS: PRENATAL VITAMIN 1 TAB PO SCH (07:49)
[2020-07-29] MEDS: IBUPROFEN 600 MG TAB PO PRN ×3 (07:49→17:22)
[2020-07-29] MEDS: oxyCODONE/ACETAMINOPHEN 5mg/325mg TAB PO PRN ×3 (07:59→17:23)
--- NOTE | 2020-07-29 09:47 | Obstetrical Progress Note ---
Date of Service July 29, 2020 Assessment & Plan (1) Normal course: Subjective Ambulation: ambulating normally Voiding: no voiding problems Passing Gas:: Yes Diet Tolerance:: regular diet Lochia:: Small Feeding Type:: breast feeding Review of Systems All systems reviewed & are unremarkable except as noted in HPI & below Physical Exam Constitutional WD/WN, vitals as above well developed and well nourished Eyes PERRL, conjunctivae normal, anicteric sclerae Neck trachea midline, no thyromegaly Respiratory normal respiratory effort, lungs clear to auscultation Auscultation: no crackles, no rales and no wheezes Cardiovascular RRR, no murmur, no edema Gastrointestinal (Abdomen) normal bowel sounds, soft, nontender, no hepatosplenomegaly Uterus is below umbilicus Musculoskeletal no cyanosis or clubbing, extremities motor strength 5/5 Skin no rashes, warm and dry Neurologic patellar DTR's 2+ bilat, sensation intact Psychiatric A+Ox3, euthymic affect Genitourinary normal external appearance Results & Data ([facility]) Vital Signs (Past 12 Hours) Vital Signs Temp Pulse Resp BP Pulse Ox 07/29/20 07:40 94 H 126/78 07/29/20 07:25 37.5 C 103 H 20 111/81 07/29/20 07:10 107 H 115/76 07/29/20 06:54 100 H 106/69 07/29/20 06:39 103 H 114/75 07/29/20 06:24 101 H 117/77 07/29/20 06:09 102 H 110/69 07/29/20 05:54 96 H 105/63 07/29/20 05:40 100 H 111/64 07/29/20 05:25 96 H 115/59 L 07/29/20 05:14 113 H 97 07/29/20 05:10 116 H 93 07/29/20 05:09 109 H 97 07/29/20 05:04 109 H 95 07/29/20 04:59 112 H 94 07/29/20 04:54 100 H 97 07/29/20 04:49 107 H 96 07/29/20 04:47 104 H 94 07/29/20 04:44 105 H 96 07/29/20 04:41 106 H 93 07/29/20 04:39 97 H 96 07/29/20 04:34 101 H 98 07/29/20 04:32 101 H 90 07/29/20 04:29 109 H 80 L 07/29/20 04:25 120 H 141/83 H 07/29/20 04:24 37.3 C 110 H 80 L 07/29/20 04:19 116 H 98 07/29/20 04:17 99 H 93 07/29/20 04:14 104 H 70 L 07/29/20 04:11 102 H 85 L 07/29/20 04:09 110 H 88 L 07/29/20 04:04 104 H 100 07/29/20 03:59 106 H 97 07/29/20 03:58 113 H 93 07/29/20 03:55 122 H 126/70 07/29/20 03:54 106 H 96 07/29/20 03:53 120 H 90 07/29/20 03:49 104 H 97 07/29/20 03:44 108 H 96 07/29/20 03:41 111 H 116/74 07/29/20 03:38 113 H 98 07/29/20 03:33 113 H 96 07/29/20 03:31 108 H 93 07/29/20 03:28 115 H 96 07/29/20 03:26 98 H 93 07/29/20 03:25 100 H 121/63 07/29/20 03:23 108 H 97 07/29/20 03:18 114 H 94 07/29/20 03:17 110 H 94 07/29/20 03:13 110 H 95 07/29/20 03:10 37.0 C 120 H 18 108/58 L 07/29/20 03:08 130 H 94 07/29/20 03:04 129 H 92 07/29/20 03:03 132 H 96 07/29/20 02:59 111 H 90 07/29/20 02:58 109 H 96 07/29/20 02:53 125 H 96 07/29/20 02:52 132 H 94 07/29/20 02:48 110 H 92 07/29/20 02:43 117 H 95 07/29/20 02:41 132 H 90 07/29/20 02:40 121 H 109/57 L 07/29/20 02:38 127 H 98 07/29/20 02:36 116 H 94 07/29/20 02:33 119 H 97 07/29/20 02:30 134 H 94 07/29/20 02:28 117 H 96 07/29/20 02:23 108 H 95 07/29/20 02:19 115 H 93 07/29/20 02:18 119 H 97 07/29/20 02:13 120 H 98 07/29/20 02:08 105 H 97 07/29/20 02:07 106 H 94 07/29/20 02:03 122 H 96 07/29/20 01:58 122 H 95 07/29/20 01:53 117 H 91 07/29/20 01:48 119 H 96 07/29/20 01:43 121 H 98 07/29/20 01:38 112 H 96 07/29/20 01:33 122 H 93 07/29/20 01:28 119 H 98 07/29/20 01:26 113 H 93 07/29/20 01:25 115 H 111/59 L 07/29/20 01:23 107 H 96 07/29/20 01:20 113 H 92 07/29/20 01:19 107 H 118/67 07/29/20 01:17 105 H 96 07/29/20 01:15 110 H 94 07/29/20 01:12 110 H 96 07/29/20 01:10 114 H 94 07/29/20 01:07 128 H 85 L 07/29/20 01:04 120 H 93 07/29/20 01:02 121 H 89 L 07/29/20 00:58 112 H 92 07/29/20 00:57 116 H 95 07/29/20 00:55 120 H 116/71 07/29/20 00:52 119 H 97 07/29/20 00:47 128 H 98 07/29/20 00:42 131 H 98 07/29/20 00:39 139 H 111/64 07/29/20 00:37 121 H 87 L 07/29/20 00:32 114 H 98 07/29/20 00:31 106 H 90 07/29/20 00:27 98 H 97 07/29/20 00:26 99 H 121/71 07/29/20 00:22 99 H 96 07/29/20 00:17 98 H 96 07/29/20 00:12 100 H 97 07/29/20 00:11 105 H 105/68 07/29/20 00:07 125 H 99 07/29/20 00:03 92 H 94 07/29/20 00:02 92 H 97 07/28/20 23:57 98 H 96 07/28/20 23:56 86 113/66 07/28/20 23:53 100 H 92 07/28/20 23:52 85 95 07/28/20 23:47 85 96 07/28/20 23:42 92 H 97 07/28/20 23:39 86 123/75 07/28/20 23:37 85 96 07/28/20 23:32 92 H 97 07/28/20 23:27 103 H 96 07/28/20 23:25 90 123/71 07/28/20 23:22 99 H 97 07/28/20 23:17 89 97 07/28/20 23:15 37.4 C 18 07/28/20 23:12 84 95 07/28/20 23:11 91 H 118/72 07/28/20 23:07 90 126/80 96 07/28/20 23:02 105 H 97 07/28/20 22:59 20 07/28/20 22:57 86 95 07/28/20 22:56 88 118/75 94 07/28/20 22:52 84 95 07/28/20 22:47 89 96 07/28/20 22:42 89 95 07/28/20 22:40 86 120/68 07/28/20 22:37 90 95 07/28/20 22:36 96 H 94 07/28/20 22:32 97 H 20 96 07/28/20 22:27 95 H 97 07/28/20 22:26 94 H 119/75 07/28/20 22:23 93 H 94 07/28/20 22:22 89 95 07/28/20 22:18 92 H 94 07/28/20 22:17 93 H 94 07/28/20 22:12 92 H 95 07/28/20 22:10 84 123/57 L 07/28/20 22:07 91 H 95 07/28/20 22:02 93 H 95 07/28/20 22:00 20 07/28/20 21:57 101 H 97 07/28/20 21:56 93 H 118/69 07/28/20 21:52 94 H 96 07/28/20 21:47 101 H 96
[2020-07-29] MEDS: QUEtiapine FUMARATE 200 MG TABCR PO SCH (21:27)
[2020-07-30] MEDS: IBUPROFEN 600 MG TAB PO PRN ×3 (06:39→18:36)
[2020-07-30] MEDS: oxyCODONE/ACETAMINOPHEN 5mg/325mg TAB PO PRN (06:39)
[2020-07-30 06:57] LABS: Hematocrit (blood only) 30.4 % (37-47); Hemoglobin 9.7 g/dL (12.0-16.0); Mean Corpuscular Hemoglobin 29.3 pg (25-34); Mean Corpuscular Hgb Conc 31.9 g/dL (32-36); Mean Corpuscular Volume 91.8 fL (80-100); Mean Platelet Volume 10.7 fL (7.4-10.4); Platelet Count 189 K/uL (130-400); RDW Coefficient of Variation 14.8 % (11.5-14.5); RDW Standard Deviation 49.6 fL (36.4-46.3); Red Blood Count 3.31 M/uL (4.2-5.4); White Blood Count 15.02 K/uL (4.8-10.8)
[2020-07-30] MEDS: FERROUS SULFATE 325 MG TAB PO SCH (08:39)
[2020-07-30] MEDS: PRENATAL VITAMIN 1 TAB PO SCH (08:39)
[2020-07-30] MEDS: DOCUSATE SODIUM 100 MG CAP PO SCH ×2 (08:39→20:27)
--- NOTE | 2020-07-30 10:13 | Obstetrical Progress Note ---
Date of Service July 30, 2020 Assessment & Plan Admission and Anticipated Discharge Date Admission Date: July 27, 2020 Subjective PPD#2 doing well tolerating diet out of bed Physical Exam Constitutional: WD/WN, vitals as above comfortable abdomen soft and non- tender no edema neg Suzanna's for d/c Results & Data ([facility]) Vital Signs (Past 12 Hours) Vital Signs Temp Pulse Resp BP Pulse Ox 07/30/20 08:40 94/60 L 07/30/20 07:24 36.8 C 108 H 16 88/54 L 07/29/20 23:20 36.7 C 94 H 16 100/61 96 Laboratory Results Laboratory Results - last 48 hr 07/30/20 06:46 WBC 15.02 H RBC 3.31 L Hgb 9.7 L Hct 30.4 L MCV 91.8 MCH 29.3 MCHC 31.9 L RDW Std Deviation 49.6 H RDW Coeff of Reggie 14.8 H Plt Count 189 MPV 10.7 H
[2020-07-30] MEDS ORDERED: bisacodyL 5 MG TABEC PO SCH (20:00)
[2020-07-30] MEDS: QUEtiapine FUMARATE 200 MG TABCR PO SCH (20:27)
[2020-07-31] MEDS: IBUPROFEN 600 MG TAB PO PRN ×3 (00:43→11:04)
[2020-07-31 06:21] LABS: Hematocrit (blood only) 30.3 % (37-47); Hemoglobin 10.3 g/dL (12.0-16.0)
[2020-07-31] MEDS: FERROUS SULFATE 325 MG TAB PO SCH (09:09)
[2020-07-31] MEDS: PRENATAL VITAMIN 1 TAB PO SCH (09:09)
[2020-07-31] MEDS: DOCUSATE SODIUM 100 MG CAP PO SCH (09:09)
--- NOTE | 2020-07-31 10:32 | Obstetrical Progress Note ---
Date of Service July 31, 2020 Assessment & Plan (1) Normal course: PPD #2 pt doing well No complaints wishes to be discharged home Subjective Ambulation: ambulating normally Voiding: no voiding problems Passing Gas:: Yes Diet Tolerance:: regular diet Lochia:: Small Feeding Type:: breast feeding Review of Systems All systems reviewed & are unremarkable except as noted in HPI & below Physical Exam Constitutional WD/WN, vitals as above well developed and well nourished Eyes PERRL, conjunctivae normal, anicteric sclerae Neck trachea midline, no thyromegaly Respiratory normal respiratory effort, lungs clear to auscultation Auscultation: no crackles, no rales and no wheezes Cardiovascular RRR, no murmur, no edema Gastrointestinal (Abdomen) normal bowel sounds, soft, nontender, no hepatosplenomegaly Uterus is below umbilicus Musculoskeletal no cyanosis or clubbing, extremities motor strength 5/5 Skin no rashes, warm and dry Neurologic patellar DTR's 2+ bilat, sensation intact Psychiatric A+Ox3, euthymic affect Genitourinary normal external appearance Results & Data ([facility]) Vital Signs (Past 12 Hours) Vital Signs Temp Pulse Resp BP 07/31/20 00:15 36.7 C 96 H 18 104/68
== END 2020-07-31 11:45 | disposition home or self-care (01) | DRG 768 ==
LOC: 4S1 07:32 → 4S2 07-29 10:22